=== PATIENT | male | born 1980 | race Caucasian/White ===

== ENCOUNTER 2016-10-12 08:42 | Emergency (ER) | payer OTHER ==
[2016-10-12 09:15] LABS: BASOPHIL 0.6 % (0-2); EOSINOPHIL 4.6 % (0-5); HGB 16.3 g/dl (13.2-18.0); MCH 31.6 pg (25.0-31.0); MCHC 34.7 g/dL (32.0-36.0); MCV 91.1 fL (78.0-100.0); MPV 9.7 fL (6.0-9.5); NEUTROPHIL 46.8 % (41-80); PLT 243 K/uL (150-400); RBC 5.16 M/uL (4.70-6.00); RDW 13.6 % (11.5-14.0); WBC 8.1 K/uL (4.0-10.5)
[2016-10-12 09:26] LABS: INR 0.96 (0.9-1.2); PROTHROMBIN TIME 12.4 SECONDS (11.7-14.0); PTT 26.4 SECONDS (23.2-31.4)
[2016-10-12 09:36] LABS: ALBUMIN 4.7 g/dL (3.5-5.0); BILIRUBIN - TOTAL 0.2 mg/dL (0.1-1.0); CREATININE 1.2 mg/dL (0.7-1.2); GLOBULIN (CALCULATION) 2.5 g/dL (2.2-4.2); MAGNESIUM 1.92 mg/dL (1.40-2.10); POTASSIUM 4.4 mmol/L (3.5-5.1); TOTAL PROTEIN 7.2 g/dL (6.4-8.3)
[2016-10-12 09:39] LABS: CKMB 1.17 ng/mL (0.97-4.94); MYOGLOBIN 44 ng/mL (26-65); PRO-BNP 33 pg/mL (0-125); TROPONIN T < 0.010 ng/mL
[2016-10-12 10:03] LABS: AMPHETAMINES NEGATIVE (NEGATIVE); BARBITURATES NEGATIVE (NEGATIVE); BENZODIAZEPINES NEGATIVE (NEGATIVE); COCAINE NEGATIVE (NEGATIVE); MARIJUANA (THC) POSITIVE (NEGATIVE); METHADONE NEGATIVE (NEGATIVE); TRICYCLIC ANTIDEPRESSANT NEGATIVE (NEGATIVE)
== END 2016-10-12 10:54 | disposition home or self-care (01) ==
LOC: FER 08:42
PROVIDERS: Internal Medicine
DX: R07.89 Other chest pain (principal); R06.02 Shortness of breath; I10 Essential (primary) hypertension; K21.9 Gastro-esophageal reflux disease without esophagitis; F41.9 Anxiety disorder, unspecified; F17.200 Nicotine dependence, unspecified, uncomplicated; Z79.899 Other long term (current) drug therapy
CPT/HCPCS: 36415; 71010; 80053; 80305; 82550; 82553; 83735; 83874; 83880; 84484; 85025; 85610; 85730; 93005; 94640

== ENCOUNTER 2021-01-26 08:51 | Emergency (ER) | payer OTHER ==
[~2021-01-26 08:51] MED LIST: NAPROXEN500 MG PO
[2021-01-26 10:03] LABS: BASOPHIL 0.6 % (0-2); EOSINOPHIL 2.5 % (0-5); HCT 39.3 % (42.0-52.0); HGB 13.9 g/dl (13.2-18.0); LYMPHOCYTE 18.4 % (15-48); MCH 31.5 pg (25.0-31.0); MCHC 35.4 g/dL (32.0-36.0); MCV 89.1 fL (78.0-100.0); MONOCYTE 7.3 % (0-12); MPV 9.6 fL (6.0-9.5); NEUTROPHIL 70.4 % (41-80); NRBC 0; PLT 288 K/uL (150-400); RBC 4.41 M/uL (4.70-6.00); WBC 15.4 K/uL (4.0-10.5)
[2021-01-26 10:24] LABS: BUN/CREAT RATIO (CALC) 10.3 RATIO; CREATININE 1.07 mg/dL (0.67-1.17); POTASSIUM 4.2 mmol/L (3.5-5.1)
[2021-01-26 11:16] LABS: BILIRUBIN NEGATIVE (NEGATIVE); BLOOD 1+ Ery/uL (NEGATIVE); CLARITY HAZY (CLEAR); COLOR YELLOW (YELLOW); GLUCOSE (U) NORMAL (NORMAL); LEUKOCYTES 3+ Leu/uL (NEGATIVE); NITRITE NEGATIVE (NEGATIVE); PROTEIN NEGATIVE (NEGATIVE); SPECIFIC GRAVITY 1.015 (1.001-1.030); UROBILINOGEN 0.2 mg/dL (0.2-1.0)
[2021-01-26 11:26] LABS: BACTERIA 4+; URINARY WBC TNTC
[2021-01-26 11:27] LABS: SQUAMOUS EPITHELIAL CELLS RARE
[2021-01-26] MEDS ORDERED: LEVAQUIN500 MG PO ×2 (12:21→12:29)
[2021-01-26] MEDS ORDERED: NORCO 5-325 TA1 EACH PO ×2 (12:21→12:29)
== END 2021-01-26 13:16 | disposition home or self-care (01) ==
LOC: FER 08:51
PROVIDERS: Emergency Medicine
DX: N13.6 Pyonephrosis (principal); F17.210 Nicotine dependence, cigarettes, uncomplicated
CPT/HCPCS: 36415; 80048; 81001; 85025; 87076; 87088; 87186; J1885

== ENCOUNTER 2022-02-23 02:41 | Emergency (ER) | payer OTHER ==
[~2022-02-23 02:41] MED LIST changes: +LEVAQUIN500 MG PO; +NORCO 5-325 TA1 EACH PO
[2022-02-23 04:13] LABS: BASOPHIL 0.6 % (0-2); EOSINOPHIL 1.6 % (0-5); HCT 40.8 % (42.0-52.0); HGB 14.1 g/dl (13.2-18.0); LYMPHOCYTE 27.3 % (15-48); MCH 31.8 pg (25.0-31.0); MCHC 34.6 g/dL (32.0-36.0); MCV 92.1 fL (78.0-100.0); MONOCYTE 6.8 % (0-12); MPV 9.6 fL (6.0-9.5); NEUTROPHIL 63.1 % (41-80); NRBC 0; PLT 280 K/uL (150-400); RBC 4.43 M/uL (4.70-6.00); RDW 13.1 % (11.5-14.0); WBC 10.3 K/uL (4.0-10.5)
[2022-02-23 04:26] LABS: ALBUMIN 3.8 g/dL (3.4-5.0); BILIRUBIN - TOTAL 0.1 mg/dL (0.2-1.0); BUN/CREAT RATIO (CALC) 9.5 RATIO; CREATININE 1.16 mg/dL (0.67-1.17); GLOBULIN (CALCULATION) 3.1 g/dL; POTASSIUM 3.7 mmol/L (3.5-5.1); TOTAL PROTEIN 6.9 g/dL (6.4-8.2)
== END 2022-02-23 04:51 | disposition home or self-care (01) ==
LOC: FER 02:41
PROVIDERS: Internal Medicine
DX: R42 Dizziness and giddiness (principal); R00.2 Palpitations; R00.1 Bradycardia, unspecified; F17.210 Nicotine dependence, cigarettes, uncomplicated
CPT/HCPCS: 36415; 80053; 85025; 93005